=== PATIENT | male | born 1940 | race African-American/Black ===

== ENCOUNTER 2022-04-19 11:40 | Emergency (ER) | payer MEDICARE, SELFPAY ==
--- NOTE | ~2022-04-19 | XR_ITS ---
XR chest 2V DATE: 04/19/2022 12:01 INDICATION: Shortness of breath TECHNIQUE: PA and lateral views COMPARISON: None FINDINGS: Normal heart size. Is aortic calcification, ectasia and tortuosity. No hilar or mediastinal enlargement. No pulmonary infiltrate or consolidation, pleural effusion or pulmonary vascular congestion or pneumo thorax. Degenerative spurring of the thoracic spine. IMPRESSION: No active cardiac pulmonary disease Aortic atherosclerosis Degenerative change of the thoracic spine Reviewed, dictated and finalized at location A.
--- NOTE | ~2022-04-19 | CT_ITS ---
EXAMINATION: CTA chest PE protocol DATE: 04/19/2022 14:48 CDT INDICATION: Elevated d-dimer. Shortness of breath. TECHNIQUE: Computed tomographic angiography (CTA) of the chest was performed with 100 mL Omnipaque-35 0 intravenous contrast. The dose-length product was 558.44 mGy-cm. Maximum intensity projection 3D-re constructions of the aorta and other arteries were constructed by the technologist on a separate work station. Automated exposure control and iterative reconstruction technique were employed. COMPARISON: None. FINDINGS: Study is technically adequate without evidence for pulmonary embolism. Heart size normal. S mall hiatal hernia. No significant pleural or pericardial effusion. No thoracic lymphadenopathy. Ther e is a 3 cm left renal mass measuring 49 Hounsfield units. Recommend correlation with MRI for further assessment. Cannot exclude renal cell carcinoma. No pneumothorax. No endobronchial lesions. No suspi cious pulmonary nodules or masses. No evidence for aortic aneurysm or dissection. There is atheroscle rosis of the aorta and coronary arteries. There is mild thoracic spondylosis. No focal lytic or blast ic lesions. Schmorl's node noted in the midthoracic spine. IMPRESSION: 1. No acute cardiopulmonary disease. No evidence for pulmonary embolism. 3: Hypodense left renal mass measuring 3 cm. Cannot exclude a renal cell carcinoma. Correlation with MRI is recommended to assess for enhancement. Reviewed, dictated and finalized at location A. IMPRESSION: 1. No acute cardiopulmonary disease. No evidence for pulmonary embolism. 3: Hypodense left renal mass measuring 3 cm. Cannot exclude a renal cell carcin sam. Correlation with MRI is recommended to assess for enhancement.
[2022-04-19 11:44] VITALS: BP 159/91; PULSE 86; RESP 20; TEMP 36; O2SAT 100
--- NOTE | 2022-04-19 11:46 | ECG_ITS ---
Measurements Intervals [place] Rate: 84 P: 47 MN: 190 QRS: 21 QRSD: 76 T: 36 QT: 351 QTc: 415 Interpretive Statements SINUS RHYTHM ATRIAL PREMATURE COMPLEXES BASELINE ARTIFACT- II, III, AVF BORDERLINE ECG Electronically Signed On 04-19-2022 14:10:05 CDT by Noah Farmer D.O.
[2022-04-19 11:58] LABS: Basophils Absolute Auto 0.1 K/mm3 (0.0-0.1); Basophils Percent Auto 1.2 % (0.2-1.2); Eosinophils Absolute Auto 0.2 K/mm3 (0-0.3); Eosinophils Percent Auto 2.8 % (0-4.4); Hematocrit 38.5 % (42.0-52.0); Hemoglobin 12.1 g/dL (14.0-18.0); Immature Granulocyte Absolute 0.01 K/mm3 (0.00-0.031); Immature Granulocyte Percent A 0.2 % (0-0.5); Lymphocytes Percent Auto 25.8 % (18.3-44.2); Mean Corpuscular HGB Conc 31.4 g/dl (32-36); Mean Corpuscular Hemoglobin 29.9 pg (26-34); Mean Corpuscular Volume 95.1 fl (80-100); Mean Platelet Volume 10.5 fl (7.4-10.4); Monocytes Absolute Auto 0.5 K/mm3 (0.1-0.6); Monocytes Percent Auto 9.3 % (2.6-8.5); Neutrophils Absolute Auto 3.5 K/mm3 (1.3-6.7); Neutrophils Percent Auto 60.7 % (45.5-73.1); Platelet Count Result 287 k/mm3 (150-375); Red Blood Count 4.05 M/mm3 (4.6-6.20); Red Cell Distribution Width 13.5 % (11.5-14.5); White Blood Count 5.8 K/mm3 (4.5-10.0)
[2022-04-19 12:00] VITALS: BP 154/76; PULSE 88; RESP 17; O2SAT 100
[2022-04-19 12:07] LABS: Alanine Aminotransferase 24 U/L (6-50); Albumin Level 4.5 g/dL (3.5-5.1); Alkaline Phosphatase 69 U/L (38-126); Anion Gap 7 mmol/L (8-16); Aspartate Amino Transferase 30 U/L (17-59); Bilirubin,Total 0.4 mg/dL (0.2-1.3); Blood Urea Nitrogen 40 mg/dL (9-20); Calcium 9.1 mg/dL (8.4-10.2); Carbon Dioxide 27 mmol/L (22-30); Chloride 107 mmol/L (98-107); Estimated CRCL calculation 32 ml/min; Estimated Glomerular Filt Rate 37; Glucose 241 mg/dL (65-110); Potassium 4.6 mmol/L (3.4-5.0); Sodium 141 mmol/L (137-145)
[2022-04-19 12:12] VITALS: BP 161/83; PULSE 85; PULSE 89; RESP 17; O2SAT 100
--- NOTE | 2022-04-19 12:38 | ED.GENADULT ---
HPI - General Adult General Chief complaint: Shortness of Breath/Dyspnea Stated complaint: SOB Time Seen by Provider: 04/19/22 11:55 History of Present Illness HPI narrative: 80-year-old male with history of prior CVA, high cholesterol and hypertension presenting to the emergency department for evaluation of increased shortness of breath with exertion. Patient states he has had a slowly worsening endurance over the last 4 months. He states that he used to be able to walk long distances but over the last 4 months that distance has decreased. Patient did fly from [place] to [place] to [place] yesterday. Patient states after his flight from [place] he needed wheelchairs for assistance to get from 1 plane to the next. Patient states while he is at rest he has no chest pain or shortness of breath. Patient states with exertion he feels excessively tired. Patient denies any fevers. Patient did have a COVID test that was negative just prior to transport. Patient does have a prior history of CVA. Patient's primary care physician is also a risk tech. Patient denies any prior history of [place]. Patient denies any history of congestive heart failure. Related Data Allergies Allergy/AdvReac Type Severity Reaction Status Date / Time No Known Allergies Allergy Verified 04/19/22 12:14 Review of Systems Review of Systems: CONSTITUTIONAL: Denies fever, chills, or sweats. EYES: Denies visual changes, redness, or discharge. ENT: Denies rhinorrhea, congestion, sore throat, or otalgia. CARDIOVASCULAR: Denies chest pain, palpitations, or edema. RESPIRATORY: Denies cough or dyspnea. Does report exertional shortness of breath but no shortness of breath at rest. GASTROINTESTINAL: Denies abdominal pain, nausea, vomiting, or diarrhea. GENITOURINARY: Denies dysuria or hematuria. SKIN: Denies rash or itching. MUSCULOSKELETAL: Denies back pain, joint pain, or myalgia. NEUROLOGIC: Denies headache, numbness, or weakness. Denies any residual symptoms from his prior CVA Exam Narrative: APPEARANCE: Well appearing, no pain, no distress, well-nourished. HEAD: normocephalic, atraumatic. EYES: PERRLA/EOMI, conjunctivae clear. NOSE: Normal no drainage NECK: Supple. No adenopathy, no masses. RESPIRATORY: Airway patent, respirations nonlabored. Clear to auscultation bilaterally, no rales, rhonchi, wheezing. CARDIOVASCULAR: Regular rate and rhythm without murmurs rubs or gallops. ABDOMINAL: Soft, nontender, nondistended, normal bowel sounds MUSCULOSKELETAL: Moves all extremities. Strength/ROM intact, No edema, No calf tenderness. NEURO: Alert. Cranial nerves II through XII intact. Grossly intact SKIN: Warm, dry. Normal Color Course Course Emergency Course: Patient did have an elevated D-dimer. CT was negative for pulmonary embolism but did show evidence of a left renal cell carcinoma. Patient's COVID was negative. Patient states he does feel improved. Patient was able to ambulate around the emergency department and states he has no shortness of breath. Findings were discussed with both the patient's and daughter. Patient was offered admission for further cardiac work-up since the underlying cause of his exertional shortness of breath was not identified. Patient declined further admission and prefers to follow-up with his primary care physician either at home in [place] or prior to going back home. Patient was also updated on the results of his CT scan showing the possible renal cell carcinoma and on the importance of having an outpatient MRI. Patient and family prefer discharge to home and they were provided the medicine physician for follow-up. Vital Signs Vital signs: Vital Signs Temperature 96.8 F L 04/19/22 11:44 Pulse Rate 86 04/19/22 11:44 Respiratory Rate 20 04/19/22 11:44 Blood Pressure 159/91 H 04/19/22 11:44 Pulse Oximetry 100 04/19/22 11:44 Oxygen Delivery Room Air 04/19/22 11:44 Temperature 96.8 F L 04/19/22 11:44 Pu
[2022-04-19 13:14] LABS: NT Pro B Type Natriuretic Pept 70 pg/mL (5-100)
[2022-04-19 13:15] VITALS: BP 132/74; PULSE 78; RESP 18; O2SAT 100
[2022-04-19 13:15] LABS: D Dimer 0.49 ug/mL (<0.48)
[2022-04-19 13:32] VITALS: O2SAT 97
[2022-04-19 13:32] LABS: SARS-CoV-2 RNA PCR Negative
--- NOTE | 2022-04-19 14:30 | PC.NURSE ---
pt. to CT
[2022-04-19 17:44] VITALS: BP 142/91; PULSE 87; RESP 18; O2SAT 99
== END 2022-04-19 17:46 | disposition home or self-care (01) ==
PROVIDERS: Emergency Medicine; Emergency Provider Emergency Medicine
DX: R06.02 Shortness of breath (principal); N28.89 Other specified disorders of kidney and ureter; Z20.822 Contact with and (suspected) exposure to COVID-19; E78.00 Pure hypercholesterolemia, unspecified; I10 Essential (primary) hypertension; Z86.73 Personal history of transient ischemic attack (TIA), and cerebral infarction without residual deficits; I70.0 Atherosclerosis of aorta
CPT/HCPCS: 36415; 71046; 71275; 80053; 83880; 85025; 85380; 93005; 99284; C9803; Q9967; U0003; U0005

== ENCOUNTER 2022-05-08 10:34 | Emergency (ER) | payer MEDICARE, SELFPAY ==
[2022-05-08 10:42] VITALS: BP 165/85; PULSE 88; RESP 16; TEMP 36.4; O2SAT 99
[2022-05-08 10:48] LABS: Glucose Point of Care 249 mg/dl (65-105)
--- NOTE | 2022-05-08 11:03 | PC.NURSE ---
patient out of medications and he is from out of town. atorvastatin, metoprolol succinate, flomax and lantus. patient denies any complaints. BSBS 249
--- NOTE | 2022-05-08 11:08 | ED.GENADULT ---
HPI - General Adult General Chief complaint: Recheck/Abnormal Lab/Rx Stated complaint: ran out of insulin yesterday Time Seen by Provider: 05/08/22 10:55 History of Present Illness HPI narrative: 82-year-old male presenting to the emergency department for evaluation for a medication refill and associated hyperglycemia. Patient states that he ran out of his Lantus insulin yesterday and has been running low on his other meds. Patient is visiting from [place] and will be here until the . Patient attempted to have follow-up with a local primary care physician but was unable to get an appointment scheduled. Related Data Allergies Allergy/AdvReac Type Severity Reaction Status Date / Time No Known Allergies Allergy Verified 05/08/22 10:58 Review of Systems Review of Systems: CONSTITUTIONAL: Denies fever, chills, or sweats. EYES: Denies visual changes, redness, or discharge. ENT: Denies rhinorrhea, congestion, sore throat, or otalgia. CARDIOVASCULAR: Denies chest pain, palpitations, or edema. RESPIRATORY: Denies cough or dyspnea. GASTROINTESTINAL: Denies abdominal pain, nausea, vomiting, or diarrhea. GENITOURINARY: Denies dysuria or hematuria. SKIN: Denies rash or itching. MUSCULOSKELETAL: Denies back pain, joint pain, or myalgia. NEUROLOGIC: Denies headache, numbness, or weakness. Exam Narrative: APPEARANCE: Well appearing, no pain, no distress, well-nourished. HEAD: normocephalic, atraumatic. EYES: PERRLA/EOMI, conjunctivae clear. NOSE: Normal no drainage NECK: Supple. No adenopathy, no masses. RESPIRATORY: Airway patent, respirations nonlabored. Clear to auscultation bilaterally, no rales, rhonchi, wheezing. CARDIOVASCULAR: Regular rate and rhythm without murmurs rubs or gallops. ABDOMINAL: Soft, nontender, nondistended, normal bowel sounds MUSCULOSKELETAL: Moves all extremities. Strength/ROM intact, No edema, No calf tenderness. NEURO: Alert. Cranial nerves II through XII intact. Grossly intact SKIN: Warm, dry. Normal Color Course Course Emergency Course: Patient's medications were refilled since he is not able to have them filled by primary care physician. Vital Signs Vital signs: Vital Signs Temperature 97.5 F L 05/08/22 10:42 Pulse Rate 88 05/08/22 10:42 Respiratory Rate 16 05/08/22 10:42 Blood Pressure 165/85 H 05/08/22 10:42 Pulse Oximetry 99 05/08/22 10:42 Oxygen Delivery Room Air 05/08/22 10:42 Temperature 97.5 F L 05/08/22 10:42 Pulse Rate 88 05/08/22 11:49 Respiratory Rate 16 05/08/22 11:49 Blood Pressure 165/85 H 05/08/22 10:42 Pulse Oximetry 98 05/08/22 11:49 Oxygen Delivery Room Air 05/08/22 10:42 Medical Decision Making Vital Signs Vital Signs: Vital Signs Temperature 97.5 F L 05/08/22 10:42 Pulse Rate 88 05/08/22 10:42 Respiratory Rate 16 05/08/22 10:42 Blood Pressure 165/85 H 05/08/22 10:42 Pulse Oximetry 99 05/08/22 10:42 Oxygen Delivery Room Air 05/08/22 10:42 Temperature 97.5 F L 05/08/22 10:42 Pulse Rate 88 05/08/22 11:49 Respiratory Rate 16 05/08/22 11:49 Blood Pressure 165/85 H 05/08/22 10:42 Pulse Oximetry 98 05/08/22 11:49 Oxygen Delivery Room Air 05/08/22 10:42 Lab Data Labs: Lab Results 05/08/22 Range/Units 10:45 POC Capillary Glucose 249 H (65-105) mg/dl Discharge Plan Discharge Clinical Impression: Encounter for medication refill, Acute hyperglycemia Patient Disposition: Home, Self-Care Condition: Stable Instructions: Antibiotic Form Additional Instructions: Medications as directed. Closely monitor your blood sugar. If you have any worsening symptoms and please call or return to the emergency department. Prescriptions: New atorvastatin 40 mg tablet 40 mg PO HS Qty: 20 0RF tamsulosin [Flomax] 0.4 mg capsule 0.4 mg PO HS Qty: 20 0RF metoprolol succinate 25 mg capsule,sprinkle,ER 24hr 25 mg PO DAILY Qty: 20 0RF insulin glargine [Edd
[2022-05-08 11:49] VITALS: PULSE 88; RESP 16; O2SAT 98
== END 2022-05-08 11:50 | disposition home or self-care (01) ==
LOC: ANHED 11:08
PROVIDERS: Emergency Provider Emergency Medicine
DX: R73.9 Hyperglycemia, unspecified (principal)
CPT/HCPCS: 82948; 99283

== ENCOUNTER 2022-11-17 08:57 | Outpatient (CLI) | payer MEDICARE, SELFPAY ==
[2022-11-17 09:17] LABS: Basophils Absolute Auto 0.1 K/mm3 (0.0-0.1); Basophils Percent Auto 0.9 % (0.2-1.2); Eosinophils Absolute Auto 0.7 K/mm3 (0-0.3); Eosinophils Percent Auto 8.2 % (0-4.4); Hematocrit 37.4 % (42.0-52.0); Hemoglobin 12.1 g/dL (14.0-18.0); Immature Granulocyte Absolute 0.03 K/mm3 (0.00-0.031); Immature Granulocyte Percent A 0.4 % (0-0.5); Lymphocytes Absolute Auto 2.68 K/mm3 (0.9-3.2); Lymphocytes Percent Auto 31.3 % (18.3-44.2); Mean Corpuscular HGB Conc 32.4 g/dl (32-36); Mean Corpuscular Hemoglobin 29.7 pg (26-34); Mean Corpuscular Volume 91.9 fl (80-100); Mean Platelet Volume 10.2 fl (7.4-10.4); Monocytes Absolute Auto 0.7 K/mm3 (0.1-0.6); Monocytes Percent Auto 7.8 % (2.6-8.5); Neutrophils Absolute Auto 4.4 K/mm3 (1.3-6.7); Neutrophils Percent Auto 51.4 % (45.5-73.1); Platelet Count Result 332 k/mm3 (150-375); Red Blood Count 4.07 M/mm3 (4.6-6.20); Red Cell Distribution Width 13.7 % (11.5-14.5); White Blood Count 8.6 K/mm3 (4.5-10.0)
[2022-11-17 10:58] LABS: Vitamin D 25 Hydroxy 43.3 ng/mL
[2022-11-17 11:06] LABS: LDL Cholesterol Direct 45 mg/dL
[2022-11-17 11:11] LABS: Alanine Aminotransferase 22 U/L (6-50); Albumin Level 4.4 g/dL (3.5-5.1); Alkaline Phosphatase 77 U/L (38-126); Anion Gap 9 mmol/L (8-16); Aspartate Amino Transferase 25 U/L (17-59); Bilirubin,Total 0.6 mg/dL (0.2-1.3); Blood Urea Nitrogen 38 mg/dL (9-20); Calcium 9.5 mg/dL (8.4-10.2); Carbon Dioxide 27 mmol/L (22-30); Chloride 104 mmol/L (98-107); Cholesterol 97 mg/dL (0-200); Estimated Glomerular Filt Rate 44; Glucose 184 mg/dL (65-110); HDL Direct 24 mg/dL; Potassium 4.9 mmol/L (3.4-5.0); Sodium 140 mmol/L (137-145); Triglycerides 74 mg/dL (<150)
[2022-11-17 11:12] LABS: Prostate Specific Antigen < 0.1 ng/mL (< OR = 4.0)
[2022-11-17 11:34] LABS: Hemoglobin A1C 12.6 % (<5.7)
[2022-11-17 11:35] LABS: Creatinine Urine 127.4 mg/dL
[2022-11-17 11:38] LABS: MALB Creatinine Ratio 73.2 mg/g (0-30); Microalbumin Urine Random 93.2 mg/L (0-16.7)
== END 2022-11-17 08:58 | disposition home or self-care (01) ==
LOC: ANHLAB 08:59
PROVIDERS: PCP Family Medicine; Visit Provider Family Medicine
DX: E78.5 Hyperlipidemia, unspecified (principal); E53.8 Deficiency of other specified B group vitamins; Z12.5 Encounter for screening for malignant neoplasm of prostate; E55.9 Vitamin D deficiency, unspecified; I10 Essential (primary) hypertension; E11.9 Type 2 diabetes mellitus without complications
CPT/HCPCS: 36415; 80053; 80061; 82043; 82306; 82607; 83036; 84153; 84443; 85025; G0103

== ENCOUNTER 2022-11-25 08:19 | Outpatient (CLI) | payer MEDICARE, SELFPAY ==
--- NOTE | ~2022-11-25 | US_ITS ---
. EXAMINATION: US art doppler w press FELICITAS CHRISTENSEN DATE: 11/25/2022 09:38 INDICATION: Peripheral vascular disease, unspecified. TECHNIQUE: Segmental pressures and plethysmographic and Doppler waveforms of the brachial and lower e xtremity arteries were obtained. COMPARISON: None. FINDINGS: Right and left brachial artery pressures of 136 mm Hg and 148 mm Hg, respectively, are concordant (no rmal difference <= 30 mmHg). The right high-thigh pressure index is 1.18 (normal > 1.2). The right ankle-brachial index (DU) is 1 .13 (normal >= 0.9-1.0). The right great toe-brachial index (TBI) is 0.60 (normal >= 0.65). Arterial Doppler waveforms are biphasic from common femoral artery to the ankle. The left high-thigh pressure index is 1.16. The left DU is 1.07. The left TBI is 0.48. Arterial Dopp ler waveforms are biphasic from common femoral artery to posterior tibial artery at least triphasic i n dorsalis pedis. IMPRESSION: 1. Decreased TBIs and normal ABIs, consistent with arterial occlusive disease. Note that ABIs may be overestimated if arteries are calcified. Reviewed, dictated and finalized at location A. 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
== END 2022-11-25 08:20 | disposition home or self-care (01) ==
LOC: ANHIMG 08:22
PROVIDERS: PCP Family Medicine; Visit Provider Family Medicine
DX: I73.9 Peripheral vascular disease, unspecified (principal)
CPT/HCPCS: 93923

== ENCOUNTER 2023-02-02 12:41 | Outpatient (CLI) | payer MEDICARE, SELFPAY ==
[2023-02-02 20:28] LABS: Alanine Aminotransferase 22 U/L (6-50); Albumin Level 4.3 g/dL (3.5-5.1); Alkaline Phosphatase 63 U/L (38-126); Anion Gap 5 mmol/L (8-16); Aspartate Amino Transferase 59 U/L (17-59); Bilirubin,Total 0.4 mg/dL (0.2-1.3); Blood Urea Nitrogen 44 mg/dL (9-20); Calcium 8.9 mg/dL (8.4-10.2); Carbon Dioxide 29 mmol/L (22-30); Chloride 106 mmol/L (98-107); Estimated Glomerular Filt Rate 51; Glucose 98 mg/dL (65-110); Potassium 4.6 mmol/L (3.4-5.0); Sodium 140 mmol/L (137-145)
[2023-02-02 20:55] LABS: Hemoglobin A1C 8.1 % (<5.7)
== END 2023-02-02 12:42 | disposition home or self-care (01) ==
LOC: ANHGOSHLAB 12:43
PROVIDERS: PCP Family Medicine; Visit Provider Family Medicine
DX: K59.09 Other constipation (principal); E11.9 Type 2 diabetes mellitus without complications; I10 Essential (primary) hypertension
CPT/HCPCS: 36415; 80053; 83036

== ENCOUNTER 2024-11-12 09:59 | Outpatient (CLI) | payer MEDICARE, SELFPAY ==
[2024-11-12 10:32] LABS: Basophils Percent Auto 0.8 % (0.2-1.2); Eosinophils Absolute Auto 0.2 K/mm3 (0-0.3); Eosinophils Percent Auto 3.5 % (0-4.4); Hematocrit 40.5 % (42.0-52.0); Hemoglobin 13.5 g/dL (14.0-18.0); Immature Granulocyte Absolute 0.01 K/mm3 (0.00-0.031); Immature Granulocyte Percent A 0.2 % (0-0.5); Lymphocytes Absolute Auto 1.78 K/mm3 (0.9-3.2); Lymphocytes Percent Auto 34.4 % (18.3-44.2); Mean Corpuscular HGB Conc 33.3 g/dl (32-36); Mean Corpuscular Volume 93.1 fl (80-100); Mean Platelet Volume 10.3 fl (7.4-10.4); Monocytes Absolute Auto 0.6 K/mm3 (0.1-0.6); Monocytes Percent Auto 11.8 % (2.6-8.5); Neutrophils Absolute Auto 2.6 K/mm3 (1.3-6.7); Neutrophils Percent Auto 49.3 % (45.5-73.1); Platelet Count Result 293 k/mm3 (150-375); Red Blood Count 4.35 M/mm3 (4.6-6.20); Red Cell Distribution Width 13.1 % (11.5-14.5); White Blood Count 5.2 K/mm3 (4.5-10.0)
[2024-11-12 12:10] LABS: Hemoglobin A1C 11.8 % (<5.7)
[2024-11-12 12:27] LABS: Alanine Aminotransferase 21 U/L (6-50); Albumin Level 4.1 g/dL (3.5-5.1); Alkaline Phosphatase 76 U/L (38-126); Anion Gap 3 mmol/L (4-12); Aspartate Amino Transferase 31 U/L (17-59); Bilirubin,Total 0.6 mg/dL (0.2-1.3); Blood Urea Nitrogen 32 mg/dL (9-20); Calcium 9.5 mg/dL (8.4-10.2); Carbon Dioxide 30 mmol/L (22-30); Chloride 105 mmol/L (98-107); Cholesterol 92 mg/dL (0-200); Estimated Glomerular Filt Rate 47; Glucose 217 mg/dL (65-110); HDL Direct 23 mg/dL; Potassium 3.9 mmol/L (3.4-5.0); Sodium 138 mmol/L (137-145); Triglycerides 62 mg/dL (<150)
[2024-11-12 12:34] LABS: Vitamin D 25 Hydroxy 39.9 ng/mL
[2024-11-12 12:37] LABS: LDL Cholesterol Direct 44 mg/dL
[2024-11-12 12:40] LABS: Creatinine Urine 178.2 mg/dL
[2024-11-12 12:45] LABS: MALB Creatinine Ratio 103.1 mg/g (0-30); Microalbumin Urine Random 183.8 mg/L (0-16.7)
[2024-11-12 12:48] LABS: Thyroid Stimulating Hormone Reflex < 0.015 uIU/mL (0.465-4.68)
[2024-11-12 15:02] LABS: Prostate Specific Antigen < 0.1 ng/mL (< OR = 4.0)
[2024-11-12 15:06] LABS: Total Triiodothyronine (T3) 0.96 NG/ML (0.97-1.69)
== END 2024-11-12 10:00 | disposition home or self-care (01) ==
LOC: ANHLAB 10:02
PROVIDERS: PCP Family Medicine; Visit Provider Family Medicine
DX: E55.9 Vitamin D deficiency, unspecified (principal); I10 Essential (primary) hypertension; E11.9 Type 2 diabetes mellitus without complications; R41.89 Other symptoms and signs involving cognitive functions and awareness; E53.8 Deficiency of other specified B group vitamins; E78.5 Hyperlipidemia, unspecified; Z12.5 Encounter for screening for malignant neoplasm of prostate
CPT/HCPCS: 36415; 80053; 80061; 82043; 82306; 82607; 83036; 84153; 84439; 84443; 84480; 85025; G0103

== ENCOUNTER 2024-11-29 10:18 | Outpatient (CLI) | payer MEDICARE, SELFPAY ==
[2024-11-29 14:54] LABS: Free T4 Free Thyroxine 0.87 ng/dL (0.78-2.19)
[2024-12-01 07:05] LABS: Triiodothyronine T3 Free 2.6 pg/mL (2.3-4.2)
[2024-12-04 22:18] LABS: Thyrotropin Receptor Antibody <1.00 IU/L (< OR = 2.00)
== END 2024-11-29 10:19 | disposition home or self-care (01) ==
LOC: ANHLAB 10:21
PROVIDERS: PCP Family Medicine; Visit Provider Family Medicine
DX: E07.9 Disorder of thyroid, unspecified (principal); R79.89 Other specified abnormal findings of blood chemistry; R07.89 Other chest pain; F32.A Depression, unspecified
CPT/HCPCS: 36415; 83519; 84439; 84443; 86800